=== PATIENT | female | born 1995 | race Caucasian/White ===

== ENCOUNTER 2018-02-22 16:30 | Day surgery (SDC) | payer BC ==
--- NOTE | 2018-02-23 04:15 | SS ---
DATE OF SERVICE: 02/22/2018 LABOR AND DELIVERY TRIAGE NOTE REGULAR PHYSICIAN: Dr. Paulie Schrader. EVALUATING PHYSICIAN. Dr. Anthony Zambrano. CHIEF COMPLAINT: Spotting after exam in the office. HISTORY OF PRESENT ILLNESS: Ms. Chavez is a 22-year-old white G1, P0, estimated date of confinement on 02/27/2018, who presents complaining of an episode of vaginal spotting after an exam in the office by Dr. Schrader. She states that she was seen this morning had a pelvic exam there and then noticed bleeding when she got home. She denies ruptured membranes or decreased movement. Her care with Dr. Schrader has been uncomplicated. PAST MEDICAL HISTORY: None. PAST SURGICAL HISTORY: None. CURRENT MEDICATIONS: vitamins. ALLERGIES: No known allergies. SOCIAL HISTORY: Denies tobacco, alcohol, or drug use. FAMILY HISTORY: Unremarkable. REVIEW OF SYSTEMS: Denies nausea, vomiting, fever, chills, or ruptured membranes. PHYSICAL EXAMINATION: VITAL SIGNS: Stable. She is afebrile. ABDOMEN: Soft, nontender, and gravid. There is no guarding or rebound. Pelvic exam by labor nurse shows the cervix to be less than 1 cm dilated and uneffaced. There is a small amount of spotting on her glove. No significant blood is seen at the introitus. heart tones are stable and reassuring. No decelerations are seen. No regular contractions are noted. ASSESSMENT: 1. A 39-week intrauterine . 2. Bloody show after exam in the office. PLAN: Patient will be discharged to home with precautions. She is to return should she notice heavier bleeding, regular contractions, or ruptured membranes. She has an appointment in Dr. SCHRADER's office early next week. TREY
== END 2018-02-22 17:33 | disposition home health service (06) ==
LOC: L&D/OP 16:30
PROVIDERS: ATTEND Obstetrics & Gynecology
DX: O26.853 Spotting complicating pregnancy, third trimester (principal); Z3A.39 39 weeks gestation of pregnancy
CPT/HCPCS: 99282

== ENCOUNTER 2018-02-28 13:53 | Inpatient (IN) | payer BC, OTHER ==
[~2018-02-28 13:53] MED LIST: Lidocaine 2% MPF 10 ML AMP (For Epidural Use) ONE
[2018-02-28] MEDS: Lactated Ringer's 1,000 ML IV SCH ×3 (14:30→23:55)
[2018-02-28 15:02] VITALS: BMI 32.3
[2018-02-28] MEDS ORDERED: Lidocaine 1% (PF) 30 ML VIAL SC PRN (15:45)
[2018-02-28] MEDS ORDERED: NS w/ Oxytocin 10 units 500 ML IV SCH (15:45)
[2018-02-28] MEDS: Misoprostol 100 MCG TAB VAG SCH ×2 (16:00→22:30)
[2018-02-28 18:06] LABS: Hemoglobin 12.6 g/dL (12.0-16.0); Mean Corpuscular HGB CONC 36.4 g/dL (32.0-36.0); Mean Corpuscular Hemoglobin 34.2 pg (25.0-35.0); Mean Corpuscular Volume 94.1 fL (78.0-98.0); Mean Platelet Volume 9.1 fL (7.4-10.4); Platelet Count 125 thou/uL (130-400); RBC Distribution Width 13.1 % (11.5-14.5); Red Blood Cell (RBC) Count 3.68 mill/uL (4.00-5.20); White Blood Cell (WBC) Count 7.6 thou/uL (4.8-10.8)
[2018-02-28] MEDS ORDERED: DISCONTINUE ALL PREVIOUS NARCOTICS FS SCH (18:45)
[2018-02-28] MEDS ORDERED: Bupivacaine 0.75% 13.4 ML, fentaNYL Citrate/PF 400 MCG in Sodium Chloride 0.9% 78.6 ML EPIDURAL SCH (18:45)
[2018-02-28 19:09] LABS: Syphilis Antibody Nonreactive (Nonreactive); Syphilis Antibody Index 0.02 S/CO (<1.00 Non-Reactive)
[2018-02-28 19:21] LABS: HIV (1/2) Antibody/Antigen Non-Reactive (NonReactive); HIV 1/2 INDEX 0.11 S/CO (<1.00); Hep B Surf Ag Non-Reactive S/CO (NonReactive)
[2018-03-01] MEDS ORDERED: Butorphanol Tartrate 1 MG/ML VIAL SLOW IVP PRN ×2 (01:41→12:22)
[2018-03-01] MEDS ORDERED: Ondansetron HCl/PF 4 MG/2 ML Vial IVP PRN ×3 (02:04→12:15)
[2018-03-01] MEDS ORDERED: Promethazine HCl 25 MG/ML VIAL IM PRN ×2 (02:04→04:26)
[2018-03-01] MEDS: Lactated Ringer's 1,000 ML IV SCH ×2 (03:52→07:42)
[2018-03-01] MEDS ORDERED: Acetaminophen 325 MG TAB PO PRN (04:26)
[2018-03-01] MEDS ORDERED: diphenhydrAMINE 50 MG/ML VIAL IVP PRN (04:26)
[2018-03-01] MEDS ORDERED: Naloxone HCl 0.4 mg/ml Vial IVP PRN ×2 (04:26)
[2018-03-01] MEDS ORDERED: ePHEDrine/0.9% NaCl/PF SYRINGE 50 mg/10 ml SLOW IVP PRN (04:26)
[2018-03-01] MEDS ORDERED: Eucerin (Mineral Oil/Petrolatum,White) 30 gm Jar TOP PRN (04:26)
[2018-03-01] MEDS ORDERED: Lactated Ringer's 500 ML IV PRN (04:26)
[2018-03-01] MEDS ORDERED: fentaNYL Citrate/PF 400 MCG, Bupivacaine 0.5% 20 ML in Sodium Chloride 0.9% 72 ML EPIDURAL SCH (04:30)
[2018-03-01] MEDS ORDERED: Communication Order-Pharmacy FS SCH (04:30)
[2018-03-01] MEDS: Misoprostol 100 MCG TAB VAG SCH (07:43)
[2018-03-01] MEDS: NS / Oxytocin 40 units/1000ml 1,000 ML IV SCH ×2 (11:03→12:45)
[2018-03-01] MEDS ORDERED: Milk Of Magnesia 30 ML UDCUP PO PRN (12:10)
[2018-03-01] MEDS ORDERED: Acetaminophen/Codeine 30-300mg Tablet PO PRN ×3 (12:15→15:03)
[2018-03-01] MEDS ORDERED: HYDROcodone/Acetaminophen 5/325 mg Tablet PO PRN ×2 (12:15)
[2018-03-01] MEDS ORDERED: NS / Oxytocin 40 units/1000ml 1,000 ML IV SCH (12:15)
[2018-03-01] MEDS ORDERED: Adacel (T-DAP) 0.5 ML VIAL IM SCH (12:15)
[2018-03-01] MEDS ORDERED: Zolpidem Tartrate 5 MG TAB PO PRN (12:15)
[2018-03-01] MEDS ORDERED: Lanolin Ointment 7 GM TUBE TOP PRN (12:15)
[2018-03-01] MEDS ORDERED: Methylergonovine 0.2 MG/ML VIAL IM PRN (12:15)
[2018-03-01] MEDS ORDERED: Bisacodyl 10 MG SUPP PR PRN (12:15)
[2018-03-01] MEDS ORDERED: diphenhydrAMINE 25 MG CAP PO PRN (12:15)
[2018-03-01] MEDS ORDERED: Preparation H Ointment 28 GM TUBE PR PRN (12:15)
[2018-03-01] MEDS: Ibuprofen 800 MG TAB PO SCH ×2 (13:52→21:19)
[2018-03-01] MEDS: NS w/ Oxytocin 10 units 500 ML IV SCH ×2 (13:53→15:35)
[2018-03-01] MEDS: Ferrous Sulfate 325 MG TAB PO SCH (15:35)
[2018-03-01] MEDS: Docusate Calcium (SURFAK) 240 MG CAP PO SCH (21:19)
[2018-03-02] MEDS: Ibuprofen 800 MG TAB PO SCH ×3 (06:26→21:16)
[2018-03-02] MEDS: Ferrous Sulfate 325 MG TAB PO SCH ×2 (08:46→14:53)
[2018-03-02] MEDS: Prenatal Vitamin 1 TAB PO SCH (08:48)
[2018-03-02] MEDS: Docusate Calcium (SURFAK) 240 MG CAP PO SCH ×2 (08:48→21:16)
[2018-03-02] MEDS: Lactated Ringer's 1,000 ML IV SCH ×2 (11:49→14:55)
[2018-03-02] MEDS: NS w/ Oxytocin 10 units 500 ML IV SCH (13:49)
[2018-03-03] MEDS: Lactated Ringer's 1,000 ML IV SCH (03:43)
[2018-03-03] MEDS: Ibuprofen 800 MG TAB PO SCH (06:29)
[2018-03-03 08:06] VITALS: BP 114/74; TEMP 98
[2018-03-03] MEDS: Prenatal Vitamin 1 TAB PO SCH (08:54)
[2018-03-03] MEDS: Docusate Calcium (SURFAK) 240 MG CAP PO SCH (08:54)
[2018-03-03] MEDS: Ferrous Sulfate 325 MG TAB PO SCH (08:54)
--- NOTE | 2018-03-08 15:08 | DN ---
DATE OF SERVICE: 03/01/2018 DELIVERY SUMMARY PREOPERATIVE DIAGNOSES: Intrauterine at 40 weeks and 0 days with a diagnosis of oligohydra mnios, who presents for term induction of labor. POSTOPERATIVE DIAGNOSES: Intrauterine at 40 weeks and 0 days with a diagnosis of oligohydr amnios, who presents for term induction of labor. PROCEDURE: Spontaneous vaginal delivery. ESTIMATED BLOOD LOSS: In this case would be a quantitative blood loss of 226 mL. COMPLICATIONS: None. FINDINGS: Viable male weighing 3118 grams or 6 pounds 14 ounces, Apgars of 9 and 9. DETAILS OF THE PROCEDURE: The patient presented to [facility] where she was a dmitted to the Labor and Delivery service. The patient underwent a normal and uneventful labor with normal cervical dilatation until she was found to be completely dilated. She was then allowed to pus h and was able to bring the baby down and delivered the baby in a vertex presentation without difficu lties. Once the head delivered in occiput anterior position, the shoulders followed spontaneously al marcos with the rest of the baby's body. Once out the baby's mouth and nose were bulb suctioned. The c ord was clamped and cut and baby was handed to waiting attendants. Cord blood was collected. Gentle Fundal massage was performed and the placenta delivered intact without problems. Hemostasis was ass ured. Quantitative blood loss was calculated. Inspection of the cervix, vaginal vault, and perineum did not reveal any lacerations needing suturing. Once again, hemostasis was within normal limits an d the patient was allowed to recover in the labor and delivery room. Baby went to nursery.
== END 2018-03-03 13:53 | disposition home or self-care (01) | DRG 775 ==
LOC: L&D 13:53 → 3SW 03-01 14:55
PROVIDERS: ADMIT Obstetrics & Gynecology; ATTEND Obstetrics & Gynecology
PROC: 10E0XZZ Delivery of Products of Conception, External Approach (ICD-10-PCS; principal; 2018-03-01)
PROC: 3E0P7VZ Introduction of Hormone into Female Reproductive, Via Natural or Artificial Opening (ICD-10-PCS; 2018-03-01)
DX: O41.03X0 Oligohydramnios, third trimester, not applicable or unspecified (principal); Z3A.40 40 weeks gestation of pregnancy; Z37.0 Single live birth
CPT/HCPCS: 36415; 51702; 85027; 86780; 86850; 86870; 86900; 86901; 87340; 87389; A4216; J0595; J2001; J3010; J7050